=== PATIENT | female | born 1990 | race American Indian/Alaskan Native ===

== ENCOUNTER 2017-12-24 19:26 | Emergency (ER) | payer OTHER ==
[~2017-12-24] VITALS: Ht 167.6 cm; Wt 81.6 kg
[~2017-12-24 19:26] MED LIST: IRON325 MG PO; LEVSIN/SL0.125 MG SL; PEPCID40 MG PO; PRENATAL TABLE1 EACH PO
[2017-12-24] MEDS ORDERED: CELEBREX100 MG PO (23:50)
[2017-12-24] MEDS ORDERED: KEFLEX500 MG PO (23:50)
== END 2017-12-25 00:04 | disposition home or self-care (01) ==
LOC: ER 19:26
DX: O03.9 Complete or unspecified spontaneous abortion without complication (principal); N39.0 Urinary tract infection, site not specified

== ENCOUNTER 2023-04-30 15:46 | Inpatient (IN) | payer OTHER ==
[~2023-04-30] VITALS: Ht 167.6 cm; Wt 81.6 kg
[~2023-04-30 15:46] MED LIST changes: +CELEBREX100 MG PO; +KEFLEX500 MG PO
[2023-04-30 18:51] LABS: HEMATOCRIT 33.3 % (36.0-45.00); HEMOGLOBIN 11.2 g/dL (12.0-15.00); MEAN CELL VOLUME 87.5 fL (80.00-100.00); MEAN CORPUSCULAR HEMOGLOBIN 29.4 pg (27.00-32.0); MEAN CORPUSCULAR HGB CONC 33.6 g/dl (32.0-36.0); PLATELET COUNT 241 K/uL (150-450); RED BLOOD COUNT 3.81 M/uL (4.00-6.00); RED CELL DISTRIBUTION WIDTH 15.1 % (11.5-14.5)
[2023-04-30 18:52] LABS: PH,URINE 5.5 (5.0-8.0); URINE APPEARANCE Clear; URINE BILIRRUBIN Negative (NEGATIVE); URINE BLOOD Small; URINE COLOR Yellow; URINE GLUCOSE Negative (NEGATIVE); URINE LEUKOCYTE Negative; URINE NITRATE Negative; URINE PROTEIN Negative (NEGATIVE)
[2023-04-30 18:55] LABS: URINE BACTERIA 1438.8 uL (0.0-1933); URINE EPITHELIAL CELLS 33.5 uL (0.0-38.8); URINE RBC 8.7 uL (0.0-20.8); URINE WBC 10.5 uL (0.0-23.2)
[2023-04-30 19:09] LABS: INR < 0.93; PARTIAL THROMBOPLASTIN TIME 26.5 SECONDS (22.0-34.0); PROTHROMBIN TIME 9.8 SECONDS (9.0-11.5)
[2023-04-30 19:10] LABS: CALCIUM 8.5 mg/dL (8.5-10.1); CREATININE SERUM 0.68 mg/dL (0.55-1.02); GFR 99.65; POTASSIUM 3.8 mEq/L (3.5-5.1)
== END 2023-05-01 03:20 | disposition home or self-care (01) | DRG 779 ==
LOC: ER 15:47 → O/R 20:40
PROVIDERS: ADMIT Obstetrics & Gynecology; ATTEND Obstetrics & Gynecology
PROC: 10D17Z9 Manual Extraction of Products of Conception, Retained, Via Natural or Artificial Opening (ICD-10-PCS; principal; 2023-04-30 21:00)
DX: O03.4 Incomplete spontaneous abortion without complication (principal); Z20.822 Contact with and (suspected) exposure to COVID-19